=== PATIENT | male | born 1990 | race Caucasian/White ===

== ENCOUNTER 2023-12-11 21:56 | Emergency (ER) | payer SELFPAY ==
[~2023-12-11] VITALS: Ht 177.8 cm; Wt 90.0 kg
[2023-12-11 22:27] VITALS: BP 119/72; PULSE 83; RESP 18; TEMP 98.7; O2SAT 94
== END 2023-12-12 12:24 | disposition left against medical advice (07) ==
LOC: EDBD 21:56 → ER 21:56 → EDBEDREQSVC 12-12 06:49 → ER 12-12 12:24
DX: F10.129 Alcohol abuse with intoxication, unspecified (principal); G92.9 Unspecified toxic encephalopathy; Y90.8 Blood alcohol level of 240 mg/100 ml or more
CPT/HCPCS: 36415; 80320; 99283; G0480